=== PATIENT | female | born 1960 | race Two or more races ===

== ENCOUNTER 2023-02-11 12:13 | Emergency (ER) | payer OTHER ==
[~2023-02-11] VITALS: Ht 167.6 cm; Wt 65.8 kg
[2023-02-11 12:37] VITALS: BP 148/80; TEMP 97.4; O2SAT 97
== END 2023-02-11 13:52 | disposition home or self-care (01) ==
LOC: ER 12:25
DX: S09.90XA Unspecified injury of head, initial encounter (principal); I10 Essential (primary) hypertension; E78.5 Hyperlipidemia, unspecified; Z60.2 Problems related to living alone; W22.8XXA Striking against or struck by other objects, initial encounter; Y93.89 Activity, other specified; Y92.89 Other specified places as the place of occurrence of the external cause; Y99.8 Other external cause status